=== PATIENT | female | born 1960 | race African-American/Black ===

== ENCOUNTER 2016-09-06 07:30 | Emergency (ER) | payer OTHER ==
[2016-09-06 07:38] VITALS: BP 130/79; PULSE 100; TEMP 97.7; BMI 28.6
[2016-09-06] MEDS ORDERED: DEXAMETHASONE SOD PHOSPHATE 10 MG/1 ML VIAL IM ONE (08:28)
[2016-09-06] MEDS ORDERED: DEXAMETHASONE SOD PHOSPHATE 10 MG/1 ML VIAL ONE (08:31)
--- NOTE | 2016-09-06 08:40 | PDOC ---
History of Present Illness - General Chief Complaint: Pain Stated Complaint: sciatica Time Seen by Provider: 09/06/16 08:15 History Source: Patient Exam Limitations: No Limitations - History of Present Illness Initial Comments: 09/06/16 08:30 56 yr female with history of sciatica low back pain states not relieved with ibuprofen and flexeril. Pt denies incontinence. Severity: reports: moderate Pain Location: reports: back Loss of Consciousness: no loss of consciousness Associated Symptoms (Fall): denies symptoms Past History - Past Medical History Allergies/Adverse Reactions: Allergies Allergy/AdvReac Type Severity Reaction Status Date / Time Penicillins Allergy Verified 09/06/16 07:38 Home Medications: Ambulatory Orders Methylprednisolone [Medrol Dose Martin] 4 mg PO ASDIR #21 tablet 09/06/16 HTN: Yes Other medical history: sciatica, low back pain - Psycho/Social/Smoking Cessation Hx Suicidal Ideation: No Smoking History: Never smoked Information on smoking cessation initiated: No Hx Alcohol Use: No Drug/Substance Use Hx: No Substance Use Type: None Trauma Specific PMHX - Complaint Specific PMHX Arthritis: No Back Injury: No Neck Injury: No Hx Sacro Iliac Joint Dysfunction: No Review of Systems - Review of Systems Able to Perform ROS?: Yes Is the patient limited Ma[place] proficient: No Constitutional: No: Symptoms Reported HEENTM: No: Symptoms Reported Respiratory: No: Symptoms reported Cardiac (ROS): No: Symptoms Reported ABD/GI: No: Symptoms Reported : No: Symptoms Reported Musculoskeletal: Yes: See HPI, Back Pain *Physical Exam - Vital Signs Last Vital Signs Temp Pulse Resp BP Pulse Ox 97.7 F 100 H 18 130/79 100 09/06/16 07:35 09/06/16 07:35 09/06/16 07:35 09/06/16 07:35 09/06/16 07:35 - Physical Exam General Appearance: Yes: Nourished, Appropriately Dressed HEENT: positive: EOMI, RENE, Normal ENT Inspection, TMs Normal, Pharynx Normal Neck: positive: Supple Respiratory/Chest: positive: Lungs Clear, Normal Breath Sounds Cardiovascular: positive: Regular Rhythm, Regular Rate Gastrointestinal/Abdominal: positive: Normal Bowel Sounds, Soft Musculoskeletal: positive: Normal Inspection, Decreased Range of Motion (left leg SLR pain at 60 degrees , nv intact sensation intact ). negative: CVA Tenderness, CVA Tenderness (R), CVA Tenderness (L), Muscle Spasm, Vertebral Tenderness Extremity: positive: Normal Capillary Refill, Normal Inspection, Normal Range of Motion Integumentary: positive: Normal Color, Dry, Warm. negative: Pale, Rash Neurologic: positive: Fully Oriented, Alert, Normal Mood/Affect, Normal Response , Motor Strength 5/5. negative: Numbness, Sensory Deficit, Finger to Nose, Confused, Disoriented Medical Decision Making - Medical Decision Making 09/06/16 08:34 cc: sciatica, left low back pain ambulatory no urinary complaints no saddle anesthesia , no groin pain , neg abd pain will give decadron dc with medrol dose pack follow up with neurosurgeon (pt from [place]) *DC/Admit/Observation/Transfer Diagnosis at time of Disposition: Sciatic leg pain - Discharge Dispostion Disposition: HOME Condition at time of disposition: Good - Prescriptions Prescriptions: Methylprednisolone [Medrol Dose Martin] 4 mg PO ASDIR #21 tablet - Patient Instructions Additional Instructions: take the next dose of steroid (medrol) tomorrow you can take flexeril if needed for any back spasm apply warm compresses to lower back as needed follow with a neuro surgeon when you get back home
== END 2016-09-06 08:50 | disposition home or self-care (01) ==
LOC: JER 07:30 → JERFT 07:30
PROC: 3E0233Z Introduction of Anti-inflammatory into Muscle, Percutaneous Approach (ICD-10-PCS; principal; 2016-09-06)
DX: M54.42 Lumbago with sciatica, left side (principal); I10 Essential (primary) hypertension
CPT/HCPCS: 99281-25